=== PATIENT | female | born 1985 | race Caucasian/White ===

== ENCOUNTER 2021-05-22 22:40 | Emergency (ER) | payer OTHER ==
[~2021-05-22] VITALS: Ht 154.9 cm; Wt 122.5 kg
[2021-05-22 22:45] VITALS: BP 156/90
--- NOTE | 2021-05-22 22:48 | NUR ---
TO LOBBY A/W BED AMBULATORY
--- NOTE | 2021-05-22 23:20 | NUR ---
PT CALLED IN LOBBY WELL OUTSIDE, NO ANSWER FROM PT.
--- NOTE | 2021-05-22 23:35 | NUR ---
PATIENT LEFT WITHOUT BEING SEEN BY DR. TIDWELL. NO FURTHER CARE PROVIDED FOR PATIENT.
== END 2021-05-22 23:35 | disposition left against medical advice (07) ==
LOC: MED 22:40
DX: M54.9 Dorsalgia, unspecified (principal); Z53.21 Procedure and treatment not carried out due to patient leaving prior to being seen by health care provider

== ENCOUNTER 2022-11-17 18:19 | Emergency (ER) | payer OTHER ==
[~2022-11-17] VITALS: Ht 160 cm; Wt 97.1 kg
[2022-11-17 18:29] VITALS: BP 95/75
--- NOTE | 2022-11-17 19:09 | NUR ---
RESOURCES FOR SUBSTANCE ABUSE GIVEN TO PT
[2022-11-17] MEDS ORDERED: KETOROLAC 60 MG/2 ML VIAL IM ONE (19:10)
[2022-11-17 19:12] LABS: BILIRUBIN,URINE NEGATIVE (NEGATIVE); BLOOD, URINE NEGATIVE (NEGATIVE); COLOR,URINE YELLOW (YELLOW); LEUKOCYTE ESTERASE ,URINE 1+ (NEGATIVE); NITRITE, URINE POSITIVE (NEGATIVE); UGLUCOSE NEGATIVE (NEGATIVE)
[2022-11-17] MEDS ORDERED: CIPR500T4 PO (19:22)
[2022-11-17] MEDS ORDERED: IBUP-2213 PO (19:22)
--- NOTE | 2022-11-17 19:22 | NUR ---
DR MANUEL AT BEDSIDE. PENDING DISPO FOR PT
--- NOTE | 2022-11-17 19:31 | NUR ---
Patient discharged with v/s stable. Written and verbal after care instructions given and explained. Patient alert, oriented and verbalized understanding of instructions. Ambulatory with steady gait. All questions addressed prior to discharge. ID band removed. Patient advised to follow up with PMD. Rx of CIPRO IBUPROFEN given. Patient educated on indication of medication including possible reaction and side effects. Opportunity to ask questions provided and answered.
[2022-11-17 19:38] LABS: RBC,URINE 0-5 /HPF (0-5)
[2022-11-17 19:41] LABS: APPEARANCE,URINE CLOUDY (CLEAR)
== END 2022-11-17 19:31 | disposition home or self-care (01) ==
LOC: MED 18:19
DX: N39.0 Urinary tract infection, site not specified (principal); Z79.899 Other long term (current) drug therapy; Z79.1 Long term (current) use of non-steroidal anti-inflammatories (NSAID); Z79.2 Long term (current) use of antibiotics
CPT/HCPCS: 81001; 81025; 87086; 96372; 99283; J1885